=== PATIENT | female | born 1950 | race Caucasian/White ===

== ENCOUNTER 2020-08-03 12:57 | Day surgery (SDC) | payer MEDICARE, OTHER, SELFPAY ==
--- NOTE | 2020-08-03 | PATH_ITS ---
[facility] Accession Number: [id number] . 01 Material submitted: . PART A: esophagus - UPPER ESOPHAGEAL POLYPOID LESION PART B: stomach - GASTRIC BODY/FUNDUS POLYP PART C: colon - ASCENDING COLON POLYP PART D: colon - DESCENDING COLON POLYP . 02 Diagnosis: A. Upper Esophagus, Polypoid Lesion, Biopsy: Benign squamous papilloma. Negative for dysplasia and malignancy. . B. Stomach, Body/Fundus, Polyp, Biopsy: Fundic gland polyps. Negative for Helicobacter by immunohistochemistry. Negative for intestinal metaplasia. Negative for dysplasia and malignancy. . C. Ascending Colon, Polyp, Biopsy: Tubular adenoma. . D. Descending Colon, Polyp, Biopsy: Hyperplastic polyp. [facility] 08/09/2020 1333 Local . 02 Electronically signed: . Cierra Pardo MD, Pathologist NPI- [id number] . 01 Gross description: . A. Specimen A is received in formalin, labeled upper esophageal polypoid lesion and consists of a 0.2 x 0.2 x 0.2 cm garcia-white fragment of soft tissue, which is entirely submitted in cassette A1. B. Specimen B is received in formalin, labeled gastric body/fundic polyp and consists of two garcia-pink fragments of soft tissue, measuring 0.6 x 0.5 x 0.2 cm in aggregate. The specimen is entirely submitted in cassette B1. C. Specimen C is received in formalin, labeled ascending colon polyp and consists of four garcia fragments of soft tissue, measuring 1.0 x 0.7 x 0.2 cm in aggregate. The specimen is entirely submitted in cassette C1. D. Specimen D is received in formalin, labeled descending colon polyp and consists of a 0.5 x 0.5 x 0.3 cm garcai fragment of soft tissue, which is entirely submitted in cassette D1. ([id number]) /[facility] 08/04/2020 1747 Local . 02 Microscopic: . B. An immunohistochemical stain was performed to evaluate for Helicobacter organisms, and is negative. The control stain showed appropriate reactivity. . * This test was developed and its performance characteristics determined by [employer]. It has not been cleared or approved by the U.S. Food and Drug Administration. The FDA has determined that such clearance or approval is not necessary. This test is used for clinical purposes. It should not be regarded as investigational or for research. . 02 Pathologist provided ICD-10: R10.9, D12.2 . 02 CPT . 709815, 790310, 946676, 085039, R50969 Performed at: 01 [facility] [address] [id number] MD Gamal Alvarez MD Phone: [phone] Performed at: 02 [facility] [address] [place], [place] [id number] MD Cierra Pardo MD Phone: [phone]
[2020-08-03 13:25] VITALS: BP 120/81; PULSE 68; RESP 16; TEMP 36.9; O2SAT 98; BMI 29.7
[2020-08-03 13:42] LABS: COVID19 -Nasal RAPID Negative (Negative)
[2020-08-03] MEDS: SODIUM CHLORIDE 0.9% 1,000 ML 200 ML IV (13:50)
[2020-08-03 13:59] VITALS: BMI 29.7
--- NOTE | 2020-08-03 14:35 | PM.HP.1 ---
History of Present Illness History of Present Illness Chief complaint: [facility] [place] Patient History Surgical History H/O thyroidectomy (Acute) Family & Social History Social History: household members spouse Tobacco & Substance use: Smoking Status Never smoker alcohol intake current alcohol intake frequency a few times a month Substance Use Type does not use Meds Home Medications and Allergies Home Medications Medication Instructions Recorded Confirmed Type levothyroxine 100 mcg PO DAILY 08/03/20 08/03/20 History Allergies Allergy/AdvReac Type Severity Reaction Status Date / Time No Known Drug Allergies Allergy Verified 08/03/20 13:25 Review of Systems Review of Systems ROS: Yes All systems reviewed with the patient and are negative except as otherwise documented Exam Vital Signs (past 8 hours): - 08/03/20 13:25 Temperature 98.4 F Pulse Rate 68 Respiratory Rate 16 Blood Pressure 120/81 Pulse Oximetry 98 Oxygen Delivery Method Room Air Narrative Exam Narrative: Awake alert and oriented x3, pupils equal round reactive to light, oropharynx clear, heart regular rate and rhythm, lungs clear to auscultation bilaterally, abdomen nontender and nondistended, extremities without edema, no gross neurologic deficits noted Objective Labs Labs: Laboratory Results - last 24 hr 08/03/20 13:18 COVID-19 PCR Negative Assessment & Plan Assessment & Plan narrative: Abdominal pain, history of colon polyps for EGD and colonoscopy COVID-19 COVID-19 status: Negative
[2020-08-03] MEDS: MIDAZOLAM 5 MG/5 ML VIAL IV ×2 (14:40→15:10)
[2020-08-03] MEDS: fentaNYL 250 MCG/5 ML INJ IV (14:40)
--- NOTE | 2020-08-03 14:48 | PM.OP.ENDO ---
Operative Date/Time/Diagnoses Date of procedure: 08/03/20 Procedure & Clinicians Study performed: EGD with biopsy Moderate conscious sedation was administered by the endoscopy nurse and supervised by the endoscopist. The following parameters were monitored: Oxygen saturation, heart rate, blood pressure, and response to care. 5 mg midazolam and 100 mcg fentanyl given Same procedure as scheduled: Yes Indications: Abdominal pain Procedure Notes Procedure in detail: Prior to the procedure, history and physical was performed, and patient medications and allergies were reviewed. Preprocedure nursing history and assessment was reviewed. Patient identification and proposed procedure were verified by the physician and nurse in the procedure room. The physical status of the patient was reassessed after the procedure. After informed consent was obtained including risks, benefits, and alternatives, the scope was passed under direct vision. Throughout the procedure, the patient's blood pressure, pulse, and oxygen saturations were monitored continuously. The upper endoscope was introduced through the mouth and advanced to the 2nd portion of the duodenum. Retroflexion was performed in the stomach. The patient tolerated the procedure well. At 20 cm from the incisors, a 3 mm papilloma was noted. This was resected with a cold biopsy forceps. In the distal esophagus, LA grade B esophagitis (One or more mucosal breaks > 5mm, but without continuity across mucosal folds) was noted. The GE junction was located at 34 cm from the incisors. A 4 cm hiatal hernia was noted. Coral pinch was located at 38 cm from the incisors. Innumerable small (3-7mm)polyps were noted throughout the fundus and body of the stomach, most likely representing fundic gland polyps. A few of these polyps were biopsied. The 1st and 2nd portions of the duodenum and ampulla were normal appearing. Impression: Diminutive Upper esophageal papilloma, resected with the biopsy forceps Reflux esophagitis 4 cm hiatal hernia Numerous small gastric polyps. Biopsied. Normal appearing examined duodenum Complications: other (EBL minimal. No complications) Post-procedure Plan for aftercare: Follow-up pathology results Follow an Anti-reflux diet and lifestyle Take famotidine 20 mg twice daily Repeat EGD in 8 weeks to confirm healing of esophagitis and to take biopsies if indicated to rule out Carrillo's esophagus Proceed with colonoscopy today
[2020-08-03 15:18] VITALS: BP 111/65; PULSE 71; RESP 11; TEMP 36.1; O2SAT 100
--- NOTE | 2020-08-03 15:18 | PM.OP.ENDO ---
Operative Date/Time/Diagnoses Date of procedure: 08/03/20 Procedure & Clinicians Study performed: Colonoscopy with forceps polypectomy Moderate conscious sedation was administered by the endoscopy nurse and supervised by the endoscopist. The following parameters were monitored: Oxygen saturation, heart rate, blood pressure, and response to care. 3 mg midazolam plus meds given for the EGD. Same procedure as scheduled: Yes Indications: Colon cancer screening. History of colon polyps. For last colonoscopy was done 5 years ago Procedure Notes Procedure in detail: Prior to the procedure, history and physical was performed, and patient medications and allergies were reviewed. Preprocedure nursing history and assessment was reviewed. Patient identification and proposed procedure were verified by the physician and nurse in the procedure room. The physical status of the patient was reassessed after the procedure. After informed consent was obtained including risks, benefits, and alternatives, the scope was passed under direct vision. Throughout the procedure, the patient's blood pressure, pulse, and oxygen saturations were monitored continuously. The colonoscope was introduced through the anus and advanced to the cecum as identified by the appendiceal orifice and ileocecal valve. The patient tolerated the procedure well. Bowel prep was deemed adequate to detect polyps greater than 5 mm. Perianal and digital rectal examinations were unremarkable. Retroflexion in the rectum revealed grade 2 internal hemorrhoids Scattered medium mouthed diverticula were noted in the sigmoid colon Two 2-3mm sessile polyps removed from the descending and ascending colon respectively with a cold biopsy forceps and retrieved. The terminal ileum was normal appearing Impression: Internal hemorrhoids Sigmoid colon diverticulosis Two 2-3mm polyps removed from the descending and ascending colon Normal appearing terminal ileum Sedation minutes: 33 Complications: other (EBL minimal. No complications) Post-procedure Plan for aftercare: Follow-up pathology results Repeat colonoscopy in 5 years for screening purposes based on pathology results Resume home medications High fiber diet Follow-up in GI clinic as previously recommended Patient has a contact number available for emergencies. The signs and symptoms of potential delayed complications were discussed with the patient. Return to normal activities tomorrow. Written discharge instructions were provided to the patient. Discharge home with escort
[2020-08-03 15:22] VITALS: BP 117/80; PULSE 83; RESP 15; TEMP 36.1; O2SAT 100
[2020-08-03 15:27] VITALS: BP 117/76; PULSE 70; RESP 17; TEMP 36.1; O2SAT 97
[2020-08-03 15:42] VITALS: BP 103/70; PULSE 65; RESP 12; TEMP 36.8; O2SAT 100
== END 2020-08-03 15:51 | disposition home or self-care (01) ==
PROVIDERS: PCP Nurse Practitioner Family; Referring Provider Nurse Practitioner Family; Visit Provider Internal Medicine
PROC: 0DJ08ZZ Inspection of Upper Intestinal Tract, Via Natural or Artificial Opening Endoscopic (ICD-10-PCS; CPT 43235; principal; 2020-08-03 14:00)
PROC: 0DJD8ZZ Inspection of Lower Intestinal Tract, Via Natural or Artificial Opening Endoscopic (ICD-10-PCS; CPT 45378; 2020-08-03 14:00)
DX: Z12.11 Encounter for screening for malignant neoplasm of colon (principal); R10.9 Unspecified abdominal pain; D13.0 Benign neoplasm of esophagus; K31.7 Polyp of stomach and duodenum; K21.00 Gastro-esophageal reflux disease with esophagitis, without bleeding; K44.9 Diaphragmatic hernia without obstruction or gangrene; D12.2 Benign neoplasm of ascending colon; K63.5 Polyp of colon; K57.30 Diverticulosis of large intestine without perforation or abscess without bleeding; K64.1 Second degree hemorrhoids; Z86.010 Personal history of colon polyps; Z11.59 Encounter for screening for other viral diseases; Z01.818 Encounter for other preprocedural examination
CPT/HCPCS: 45380; 43239; 87635; J2250; J3010

== ENCOUNTER → 2020-11-02 11:37 | Outpatient (CLI) | payer MEDICARE, OTHER, SELFPAY ==
[2020-11-02 12:10] LABS: COVID19 -Nasal RAPID Negative (Negative)
== END ==
PROVIDERS: PCP Nurse Practitioner Family; Visit Provider Nurse Practitioner
DX: Z20.822 Contact with and (suspected) exposure to COVID-19 (principal)
CPT/HCPCS: 87635

== ENCOUNTER 2020-11-02 13:24 | Day surgery (SDC) | payer MEDICARE, OTHER, SELFPAY ==
[2020-11-02] VITALS (7 sets, daily range): BP systolic 102–126; BP diastolic 59–78; PULSE 67–84; RESP 12–20; TEMP 36.4–36.8; O2SAT 97–100; BMI 30.5
--- NOTE | 2020-11-02 | PATH_ITS ---
[facility] Accession Number: [id number] . 01 Material submitted: . esophagus - ESOPHAGUS . 01 Clinical history: . ESOPHAGITIS RULE OUT JJ'S . 02 Diagnosis: Esophagus, Biopsy: Ulcerated squamocolumnar junctional mucosa. Negative for intestinal metplasia. Negative for dysplasia and malignancy. I 11/04/2020 1500 Local . 02 Electronically signed: . Cierra Pardo MD, Pathologist NPI- [id number] . 01 Gross description: . ESOPHAGUS: Received in formalin are 2 fragment(s) of garcia, soft tissue measuring 0.2 x 0.2 x 0.1 cm to 0.4 x 0.2 x 0.2 cm submitted entirely in 1 cassette(s) /[facility] 11/03/2020 1843 Local . 02 Pathologist provided ICD-10: R10.9 . 02 CPT . 477215 Performed at: 01 [facility] [address] [facility], [place], [place] [id number] MD Gamal Alvarez MD Phone: [phone] Performed at: 02 [facility] [address] [place], [place] [id number] MD Cierra Pardo MD Phone: [phone]
[2020-11-02] MEDS: SODIUM CHLORIDE 0.9% 1,000 ML 70 ML IV (13:59)
--- NOTE | 2020-11-02 14:23 | PM.HP.1 ---
History of Present Illness History of Present Illness Date Patient Seen: 11/02/20 Time Patient Seen: 14:20 Chief complaint: SDC Narrative: Patient is a very pleasant 70-year-old female who presented for upper endoscopy. She did have LA-B esophagitis on upper endoscopy on August 03, 2020. She is here for recheck to assess for healing. Patient History Surgical History H/O thyroidectomy Family & Social History Social History: household members spouse Tobacco & Substance use: Smoking Status Never smoker alcohol intake current alcohol intake frequency a few times a month Substance Use Type does not use Meds Home Medications and Allergies Home Medications Medication Instructions Recorded Confirmed Type levothyroxine 100 mcg PO DAILY 08/03/20 11/02/20 History famotidine 20 mg PO BID 11/02/20 11/02/20 History magnesium oxide 400 mg PO DAILY 11/02/20 11/02/20 History Allergies Allergy/AdvReac Type Severity Reaction Status Date / Time No Known Drug Allergies Allergy Verified 08/03/20 13:25 Review of Systems Review of Systems ROS: Yes All systems reviewed with the patient and are negative except as otherwise documented Exam Vital Signs (past 8 hours): - 11/02/20 13:45 Temperature 98.3 F Pulse Rate 76 Respiratory Rate 20 Blood Pressure 126/78 Pulse Oximetry 99 Oxygen Delivery Method Room Air Const General: cooperative, healthy appearing, comfortable, well developed and well groomed Nutritional Appearance: average body habitus Orientation: alert and awake HENWI Head: normocephalic and atraumatic Resp Effort & Inspection: normal respiratory effort and able to speak in complete sentences Auscultation: clear to auscultation bilaterally Cardio Rate: regular rate Rhythm: regular rhythm Heart Sounds: S1 normal and S2 normal Extrem Right lower extremity: no edema Left lower extremity: no edema Assessment & Plan Assessment & Plan narrative: 1. Esophagitis on EGD 08/10/2020 Repeat EGD today, further recommendations to follow
[2020-11-02] MEDS: MIDAZOLAM 5 MG/5 ML VIAL IV (14:29)
[2020-11-02] MEDS: fentaNYL 250 MCG/5 ML INJ IV (14:29)
[2020-11-02] MEDS: LIDOCAINE 4% SOLN 50 ML 20 ML TOP (14:34)
--- NOTE | 2020-11-02 14:39 | PM.OP.ENDO ---
Operative Date/Time/Diagnoses Date of procedure: 11/02/20 Time of procedure: 14:25 Procedure Notes Procedure in detail: Surgeon: Cris Flores DO Procedure: Esophagogastroduodenoscopy with biopsy Preoperative diagnosis: 1. History of esophagitis 08/03/2020 Postoperative diagnosis: 1. LA-A esophagitis, biopsied to rule out Carrillo's esophagus (improved from prior studies) 2. Hiatal hernia 3. Gastric polyps, biopsied on previous EGD Medications: Conscious sedation using 5 mg IV of Midazolam and 100 mcg IV of Fentanyl Preanesthesia Assessment An H and P was performed/updated and the Px?s ASA class is 2. The procedure was discussed in detail with the patient. The potential risks and complications including infection, bleeding, missed lesions, perforation, need for surgery in case of perforation, prolonged hospital stay, and were explained. A brief question and answer period was allotted and once all questions were answered, informed consent was obtained. The patient was brought back to the procedure room and placed on standard monitoring. The patient?s vital signs were monitored continuously throughout the entire procedure. Prior to starting, a timeout was performed to confirm the patient?s identity, allergies, medications, and procedure. Procedure in detail The patient was placed in left lateral decubitus position and a bite block was inserted. The tip of the upper endoscope was placed into the mouth and advanced without difficulty under direct visualization into the esophagus. Esophagus: LA-A esophagitis, improved from previous EGD. Biopsied to rule out Carrillo's esophagus Mildly tortuous lower 1/3rd of the esophagus Stomach: Hiatal hernia Multiple gastric polyps in the stomach, previously biopsied consistent with fundic gland polyps Duodenum: Normal-appearing duodenum The patient tolerated the procedure well and will be brought back to the recovery area to be discharged once criteria are met. The total physician intraservice time was 9min. Complications There were no complications and estimated blood loss was minimal. Recommendations: Resume previous diet Continue outPx medications Follow up pathology results Office follow up if persistent symptoms An emergency contact number was given to the patient for any complications related to the procedure
--- NOTE | 2020-11-02 15:48 | SUR.PHASEII ---
Pt met criteria for discharge: VSS, denied pain or nausea, able to drink fluids without difficulty. Discharge instructions discussed with pt, pt had more questions, Dr. Flores came to bedside to discuss pt's questions, all questions answered. Transported via W/C to private vehicle.
== END 2020-11-02 15:35 | disposition home or self-care (01) ==
PROVIDERS: PCP Nurse Practitioner Family; Referring Provider Student in an Organized Health Care Education/Training Program; Visit Provider Student in an Organized Health Care Education/Training Program
PROC: 0DJ08ZZ Inspection of Upper Intestinal Tract, Via Natural or Artificial Opening Endoscopic (ICD-10-PCS; CPT 43235; principal; 2020-11-02 14:30)
DX: K20.90 Esophagitis, unspecified without bleeding (principal); K82.8 Other specified diseases of gallbladder; Z20.822 Contact with and (suspected) exposure to COVID-19; K44.9 Diaphragmatic hernia without obstruction or gangrene; K31.7 Polyp of stomach and duodenum
CPT/HCPCS: 43239; 87635; C9803; J2250; J3010